=== PATIENT | female | born 1960 | race Caucasian/White ===

== ENCOUNTER → 2017-12-08 | Outpatient (CLI) | payer BC ==
[2016-05-13 08:48] VITALS: BMI 24.3
[~2017-12-08] MED LIST: ACE325 PO; ACET-2893 PO; AMOX-559 PO; ASPI-757 PO; ATOR20TA65 PO; BLOO1STR16 MC; ESCI10TA8 PO; ESCI20TA8 PO; FLU45SYR25 IM ONLY; FURO-45 PO; FURO-47 PO; GLUC-396 PO; HUMALOG SC; HUMNI SC; INSU100V24 SQ; LANI SUBQ; LISI-362 PO; METH500T6 PO; METO25TA23 PO; MULT1TAB67 PO; NAPR220C12 PO; NOVOLINRPT IJ; OMEP-125 PO; PNEI IJ; POTA-23 PO; SUCR1TAB51 PO; TRAM-420 PO
[2017-12-08 12:07] LABS: PLATELET COUNT, AUTOMATED 327 K/uL (150-450)
[2017-12-08 12:31] LABS: LDL CHOLESTEROL 80 mg/dl
--- NOTE | 2017-12-08 14:11 | RADIOLOGY IMAGING REPORT ---
FACILITY: [facility] [place] PATIENT NAME: Nunu Mattson : 1960 MR: [id number] V: [id number] EXAM DATE: ORDERING PHYSICIAN: LIU MELVIN TECHNOLOGIST: Location: [facility] [place] Patient: Nunu Mattson : 1960 Visit/Account:[id number] Date of Sevice: 12/08/2017 Exam type: HIP LEFT History: HIP PAIN on left with no known injury Comparison: None. Findings: Two views the left hip are submitted There is mild narrowing of the superior aspect of both hip joints. There is no evidence of acute fra cture-dislocation involving the left hip. Incidentally noted is scoliosis of the visualized lower dev mbar spine. There are numerous calcified phlebolith in the pelvis. Soft tissue fullness in the pelv is may represent a distended urinary bladder IMPRESSION: 1. Mild narrowing the superior aspect of both hip joints There is soft tissue fullness in the pelvis which may represent a distended urinary bladder. The pel don mass is of clinical concern pelvic ultrasound is recommended Report Dictated By: Mi Gage MD at 12/08/2017 2:06 PM Report E-Signed By: Mi Gage MD at 12/08/2017 2:08 PM WSN:[email or web address]
== END ==
LOC: LAB 11:35
PROVIDERS: ATTEND Internal Medicine
DX: F32.9 Major depressive disorder, single episode, unspecified (principal); I50.9 Heart failure, unspecified; R06.00 Dyspnea, unspecified; E11.9 Type 2 diabetes mellitus without complications; M25.552 Pain in left hip
CPT/HCPCS: 36415; 81001; 82040; 82043; 82247; 82310; 82374; 82435; 82465; 82565; 82947; 83036; 83718; 83880; 84075; 84132; 84155; 84295; 84443; 84450; 84460; 84478; 84520; 85025

== ENCOUNTER → 2017-12-15 | Outpatient (CLI) | payer BC ==
[2016-05-13 08:48] VITALS: BMI 24.3
--- NOTE | 2017-12-15 11:48 | RADIOLOGY IMAGING REPORT ---
FACILITY: [facility] [place] PATIENT NAME: Nunu Mattson : 1960 MR: [id number] V: [id number] EXAM DATE: ORDERING PHYSICIAN: LIU MELVIN TECHNOLOGIST: Location: [facility] [place] Patient: Nunu Mattson : 1960 Visit/Account:[id number] Date of Sevice: 12/15/2017 PELVIC HISTORY: Pelvic mass, partial hysterectomy 17 years ago TECHNIQUE: Transabdominal ultrasound pelvis. The patient refused transvaginal imaging COMPARISON: None. FINDINGS: The patient is status post hysterectomy Ovaries: Right - 13 x 7.2 x 8.3 cm. There is a septated cyst in the right adnexa measuring 12.3 x 5.6 x 7.1 cm. There is a thick septation measuring up to 9 mm in thickness and a 2.8 x 1.7 cm mural nodule Left - not seen Adnexa: As above. Free pelvic fluid: None. IMPRESSION: There is a 12.3 x 5.6 x 7.1 cm septated cystic mass containing a thick septation measuring up to 9 mm in the right adnexa. Also present is a 2.8 x 1.7 cm mural nodule. Although the differential diagno sis would include benign etiologies, ovarian malignancy is of concern. Post surgical changes from hysterectomy Left ovary not visualized Report Dictated By: Mi Gage MD at 12/15/2017 11:33 AM Report E-Signed By: Mi Gage MD at 12/15/2017 11:44 AM WSN:[email or web address]
== END ==
LOC: US 00:28
PROVIDERS: ATTEND Internal Medicine
DX: N83.201 Unspecified ovarian cyst, right side (principal); Z90.79 Acquired absence of other genital organ(s)
CPT/HCPCS: 76856

== ENCOUNTER → 2017-12-20 | Outpatient (CLI) | payer BC ==
[2016-05-13 08:48] VITALS: BMI 24.3
[~2017-12-20] MED LIST changes: +OXYGENHOME INH
== END ==
LOC: LAB 11:15
PROVIDERS: ATTEND Student in an Organized Health Care Education/Training Program
DX: R19.03 Right lower quadrant abdominal swelling, mass and lump (principal)
CPT/HCPCS: 86304

== ENCOUNTER → 2018-01-06 | Outpatient (CLI) | payer MEDICARE, BC ==
[2016-05-13 08:48] VITALS: BMI 24.3
[~2018-01-06] MED LIST changes: +CEPH500T7 PO; +IOPAMIDOL 76% 100 ML INFUS BTL 100 ML ONE
--- NOTE | 2018-01-06 11:43 | RADIOLOGY IMAGING REPORT ---
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 Coronal and sagittal reformatting also performed. CONTRAST: 100 mL [id number] COMPARISON: Abdomen ultrasound May 14, 2016 CT of the chest December 17, 2016 and pelvic ultrasound J une 2017 FINDINGS: Visualized lung bases: Coarse linear stranding in the left lower lobe and lingula and inferior right middle lobe may represent scarring versus atelectasis. Hepatobiliary: There is enlarged measuring 22.3 cm in length. There is a tiny round hypodensity inf eromedial right lobe which may represent a cyst although is too small to characterize. There is a sm all subcapsular fluid collection seen along the inferolateral aspect of the right lobe. The common b ile duct is dilated up to 9 mm. A similar finding was present on the abdomen ultrasound May 14, 2016. No intrahepatic ductal dilatation is identified. Spleen: Negative. Adrenals: There is a 8 mm hypoattenuating right adrenal nodule appears similar to the prior CT of e chest from December 17, 2016 Pancreas: Body and tail the pancreas appear atrophic Kidneys ureters or bladder: Negative. Genitalia: There is a large septated cystic mass extending out of the pelvis mostly in the midline m easuring approximately 12.7 x 9.5 x 8.9 cm contains several hyper dense mural nodules. Is a trace am ount of free pelvic fluid. Patient status post hysterectomy GI: Small hiatal hernia. There is no evidence of bowel obstruction or bowel wall thickening Vessels/spaces/nodes: There Is a heterogeneous soft tissue density mass containing several punctate c alcifications measuring approximately 4 x 4.4 x 4 cm projecting along the superior left side of the s eptated cystic mass and is in direct contact with several adjacent loops of small bowel. This could be exophytic component of the large pelvic mass or a peritoneal implant. . There are at least moderate vascular calcifications throughout the abdomen and pelvis Bones/soft tissues: There is a severe S-shaped scoliosis of the thoracolumbar spine with spondylotic changes. There is a left inguinal hernia containing fat Additional findings: None pertinent. IMPRESSION: There is a large septated cystic mass extending out of the pelvis mostly in the midline measuring ilene roximately 12.7 x 9.5 x 8.9 cm and contains several hyperdense mural nodules. There is also a 4 x 4. 4 x 4 cm soft tissue density heterogeneous mass containing several calcifications projecting along th e superior left side of the septated cystic mass is in direct contact with several adjacent loops of small bowel. This could be an exophytic component of the large pelvic mass or a peritoneal implant. Ovarian neoplasm is of concern 8 mm hypoattenuating right adrenal nodule appears stable Hepatomegaly There is dilatation of the common bile duct measuring up to 9 mm. No intrahepatic ductal dilatation is seen. A similar finding was seen on a prior abdomen ultrasound May 14, 2016. If further diag nostic imaging is desired and MRCP may be helpful Additional chronic findings . Report Dictated By: Mi Gage MD at 01/06/2018 10:59 AM Report E-Signed By: Mi Gage MD at 01/06/2018 11:39 AM AINSLEYN:[email or web address]
== END ==
LOC: CT 04:13
PROVIDERS: ATTEND Nurse Practitioner Acute Care
DX: R19.00 Intra-abdominal and pelvic swelling, mass and lump, unspecified site (principal); K40.90 Unilateral inguinal hernia, without obstruction or gangrene, not specified as recurrent; M41.84 Other forms of scoliosis, thoracic region; Z90.710 Acquired absence of both cervix and uterus
CPT/HCPCS: 74177; Q9967

== ENCOUNTER → 2018-02-21 | Outpatient (CLI) | payer BC, MEDICARE ==
[2016-05-13 08:48] VITALS: BMI 24.3
[~2018-02-21] MED LIST changes: -IOPAMIDOL 76% 100 ML INFUS BTL 100 ML ONE; +RIVA10TA PO
[2018-02-21 11:18] LABS: PLATELET COUNT, AUTOMATED 423 K/uL (150-450)
== END ==
LOC: LAB 10:40
PROVIDERS: ATTEND Internal Medicine
DX: E11.9 Type 2 diabetes mellitus without complications (principal); E78.5 Hyperlipidemia, unspecified; R25.2 Cramp and spasm
CPT/HCPCS: 36415; 82040; 82247; 82310; 82374; 82435; 82565; 82947; 83735; 84075; 84132; 84155; 84295; 84443; 84450; 84460; 84520; 85025

== ENCOUNTER → 2018-02-22 | Outpatient (CLI) | payer BC, MEDICARE ==
[2016-05-13 08:48] VITALS: BMI 24.3
--- NOTE | 2018-02-22 11:36 | RADIOLOGY IMAGING REPORT ---
FACILITY: [facility] PATIENT NAME: Nunu Mattson : 1960 MR: [id number] V: [id number] EXAM DATE: ORDERING PHYSICIAN: LIU MELVIN TECHNOLOGIST: Location: [facility] Patient: Nunu Mattson : 1960 Visit/Account:[id number] Date of Sevice: 02/22/2018 Exam type: VENOUS DOPP LOW RIGHT EXTREMIT History: Leg pain Comparison: None. Findings: The right lower extremity veins were imaged including the right common femoral vein, superficial femo ral vein, greater saphenous vein, popliteal vein, posterior tibial vein, anterior tibial vein peronea l veins revealing no evidence of intraluminal thrombi. The veins were compressible and demonstrated augmentation IMPRESSION: 1. No sonographic evidence DVT involving the right lower extremity veins Report Dictated By: Mi Gage MD at 02/22/2018 11:31 AM Report E-Signed By: Mi Gage MD at 02/22/2018 11:33 AM WSN:[email or web address]
== END ==
LOC: US 02:44
PROVIDERS: ATTEND Internal Medicine
DX: E11.9 Type 2 diabetes mellitus without complications (principal); C56.9 Malignant neoplasm of unspecified ovary; F32.9 Major depressive disorder, single episode, unspecified; M79.606 Pain in leg, unspecified

== ENCOUNTER → 2018-03-31 | Outpatient (CLI) | payer BC, MEDICARE ==
[2016-05-13 08:48] VITALS: BMI 24.3
== END ==
LOC: LAB 10:28
PROVIDERS: ATTEND Student in an Organized Health Care Education/Training Program
DX: C56.1 Malignant neoplasm of right ovary (principal)
CPT/HCPCS: 36415; 86304

== ENCOUNTER 2018-05-23 16:45 | Emergency (ER) | payer BC, MEDICARE ==
[2016-05-13 08:48] VITALS: Wt 68.0 kg
[2018-05-23 17:06] VITALS: BP 121/71
--- NOTE | 2018-05-23 17:07 | ER Report ---
History and Physical Time Seen By : 17:07 HPI/ROS 58-year-old female sent to the emergency department by her primary physician after routine blood draw found that she had a glucose in the 700s. The blood draw was today at 1330. She continued emergency department after being called by her primary physician. In the ED her sugar was in the 200s. She said she has not taken any insulin in between getting her blood drawn and presenting to the emergency department. She otherwise feels well. She states she is compliant with her diabetic regimen. She states that she knows when her sugar is high, because she gets thirsty. She said that she has not been thirsty today. Remainder of the 14 system rev: Yes Allergies: Coded Allergies: No Known Drug Allergies (Unverified , 05/30/17) Home Meds Active Scripts Gabapentin (GABAPENTIN) 100 Mg Capsule, 1-3 CAP PO TID PRN for neuropathy, #60 CAPSULE 3 Refills Prov:LIU MELVIN MD 05/23/18 Flash Glucose Sensor (Freestyle Diana 14 Day Sensor) 1 Each Kit, UNIT Q2WK, #2 11 Refills Prov:LIU MELVIN MD 05/23/18 Flash Glucose Scanning [place] (Freestyle Diana 14 Day [place]) 1 Each Each, UNIT TD DIRECTED, #1 Prov:LIU MELVIN MD 05/23/18 Pantoprazole Sodium (PANTOPRAZOLE SODIUM) 40 Mg Tablet.dr, 40 MG PO QDAY, #30 TAB.SR 6 Refills Prov:LIU MELVIN MD 05/23/18 Escitalopram Oxalate (ESCITALOPRAM OXALATE) 20 Mg Tablet, 20 MG PO QDAY, #90 TAB 3 Refills Prov:LIU MELVIN MD 02/21/18 Atorvastatin Calcium (ATORVASTATIN CALCIUM) 20 Mg Tablet, 1 TAB PO QDAY, #90 TAB 3 Refills Prov:LIU MELVIN MD 02/21/18 Furosemide (FUROSEMIDE) 20 Mg Tablet, 1 TAB PO QDAY, #90 TAB 1 Refill Prov:LIU MELVIN MD 02/21/18 Blood Sugar Diagnostic (FREESTYLE LITE TEST STRIPS) 1 Each Strip, 1 EACH MC QID, #100 STRIP 7 Refills use four times a day to test blood sugar Prov:LIU MELVIN MD 02/08/17 Insulin Regular, Human (NOVOLIN R) 100 Unit/1 Ml Vial, 15-20 UNIT IJ TID, #6 VIAL 4 Refills 15-20 units three times a day Sliding scale Prov:LIU MELVIN MD 01/13/17 Reported Medications Aspirin (ASPIRIN) 81 Mg Tab.chew, 81 MG PO QDAY, TAB.CHEW 05/23/18 Oxygen (OXYGEN) Inha, 2 L INH, L 12/20/17 Insulin Glargine (LANTUS) 100 Unit/Ml Soln, 15 UNIT SUBQ BID, ML 05/30/17 Discontinued Reported Medications Rivaroxaban 10 MG (Xarelto 10 MG) 10 Mg Tablet, 1 TAB PO QDAY 02/21/18 Discontinued Scripts Omeprazole (OMEPRAZOLE) 20 Mg Capsule.dr, 1 CAP PO QDAY, #90 CAP 3 Refills Prov:LIU MELVIN MD 02/21/18 Tramadol Hcl (TRAMADOL HCL) 50 Mg Tablet, 50 MG PO QID, #30 TAB Prov:LIU MELVIN MD 12/08/17 Aspirin (ASPIRIN) 325 Mg Tablet, 325 MG PO QDAY, #90 Prov:LIU MELVIN MD 05/14/16 Reviewed Nurses Notes: Yes Old Medical Records Reviewed: Yes Hx Smoking: Yes Smoking Status: Former Smoker Hx Substance Use Disorder: No Hx Alcohol Use: No Constitutional Vital Sign - Last 24 Hours 05/23/18 17:06 Temp 97.8 Pulse 86 Resp 18 B/P (MAP) 121/71 Pulse Ox 97 O2 Delivery Nasal Cannula Physical Exam General Appearance: The patient is alert, has no immediate need for airway protection and no current signs of toxicity. Eyes: Pupils equal and round no injection. Respiratory: Chest is non tender, lungs are clear to auscultation. Cardiac: regular rate and rhythm Gastrointestinal: Abdomen is soft and non tender, no masses, bowel sounds gino l. Extremities have full range of motion and are non tender. Skin: No rashes or lesions. DIFFERENTIAL DIAGNOSIS: After history and physical exam differential diagnosis was considered for infection, non compliance, lab error Medical Decision Making ED Course/Re-evaluation ED Course Sent to the ED for blood sugar in the 700s. In the ED her blood sugar is 250. No further intervention needed. She will follow-up with her primary care physician tomorrow. Decision to Disposition Date: May 23, 2018 Decision to Disposition Time: 17:42 Depart Departure Latest Vital Signs Vital Signs Date Time Temp Pulse Resp B/P (MAP) Pulse Ox O2 Delivery O2 Flow Rate FiO2 05/23/18 17:06 97.8 86 18 121/71 97 Nasal Cannula Impression: Primary Impression: Hyperglycemia Condition: Improved Disposition: HOME OR SELF-CARE Referrals: LIU MELVIN MD (PCP) Additional Instructions: Resume your regular insulin and diabetic regimen as prescribed by your doctor ANGELA CHOU MD May 23, 2018 17:07
== END 2018-05-23 18:03 | disposition home or self-care (01) ==
LOC: ER 17:09
DX: E11.65 Type 2 diabetes mellitus with hyperglycemia (principal)
CPT/HCPCS: 36416; 82948; 99282

== ENCOUNTER → 2018-05-23 | Outpatient (CLI) | payer BC, MEDICARE ==
[2016-05-13 08:48] VITALS: BMI 24.3
[~2018-05-23] MED LIST changes: +ASPI81TA94 PO; +FLAS1EAC2 TD; +FLAS1KIT2; +FLU60SYR36 IM; +GABA-547 PO; +PANT40TA65 PO
[2018-05-23 15:09] LABS: PLATELET COUNT, AUTOMATED 354 K/uL (150-450)
== END ==
LOC: LAB 14:41
PROVIDERS: ATTEND Internal Medicine
DX: I50.9 Heart failure, unspecified (principal); F32.9 Major depressive disorder, single episode, unspecified; E11.9 Type 2 diabetes mellitus without complications; E78.5 Hyperlipidemia, unspecified
CPT/HCPCS: 36415; 81001; 82040; 82043; 82247; 82310; 82374; 82435; 82465; 82565; 82947; 83036; 83718; 84075; 84132; 84155; 84295; 84443; 84450; 84460; 84478; 84520; 85025

== ENCOUNTER → 2018-07-07 | Outpatient (CLI) | payer BC, MEDICARE ==
[2016-05-13 08:48] VITALS: BMI 24.3
== END ==
LOC: LAB 09:39
PROVIDERS: ATTEND Surgery
DX: L72.0 Epidermal cyst (principal)
CPT/HCPCS: 88305

== ENCOUNTER → 2018-07-17 | Outpatient (CLI) | payer BC, MEDICARE ==
[2016-05-13 08:48] VITALS: BMI 24.3
--- NOTE | 2018-07-17 11:48 | RADIOLOGY IMAGING REPORT ---
FACILITY: [facility] [place] PATIENT NAME: Nunu Mattson : 1960 MR: [id number] V: [id number] EXAM DATE: ORDERING PHYSICIAN: LIU MELVIN TECHNOLOGIST: Location: [facility] Patient: Nunu Mattson : 1960 Visit/Account:[id number] Date of Sevice: 07/17/2018 VENOUS LOWER EXT RT HISTORY: edema, redness and pain RLE COMPARISON: None. FINDINGS: Grayscale, duplex and color Doppler interrogation of the right lower extremity deep veins from common femoral vein to proximal calf was completed. The greater saphenous vein in the proximal thigh was ev aluated using similar technique. Common femoral vein - Negative. Femoral vein - Negative. Deep femoral vein - Negative. Popliteal vein - Negative. Visualized deep calf veins - Negative. Popliteal fossa: Negative. Greater saphenous vein in the proximal thigh: Negative. IMPRESSION: No evidence for DVT. Report Dictated By: Neville Samuel MD at 07/17/2018 11:44 AM Report E-Signed By: Neville Samuel MD at 07/17/2018 11:44 AM WSN:[id number]
== END ==
LOC: US 04:35
PROVIDERS: ATTEND Internal Medicine
DX: R60.9 Edema, unspecified (principal)

== ENCOUNTER 2018-11-20 16:23 | Inpatient (IN) | payer BC, MEDICARE ==
[2016-05-13 08:48] VITALS: Ht 157.5 cm; Wt 70.6 kg
[~2018-11-20] VITALS: Ht 157.5 cm; Wt 70.6 kg
[2018-11-20] VITALS (22 sets, daily range): BP systolic 79–108; BP diastolic 44–65
--- NOTE | 2018-11-20 16:27 | ER Report ---
History and Physical Time Seen By MD: 16:27 HPI/ROS CHIEF COMPLAINT: Nausea, vomiting HISTORY OF PRESENT ILLNESS: Patient is a 58-year-old female here with complaints of nausea, vomiting for the past several days, several weeks of general malaise and weakness. Patient is a type II diabetic insulin-dependent, with a history of CHF on furosemide and, 2 L/m to 3 L/m baseline nasal cannula supplemental oxygen requirement. Patient reports that she is unable to keep down food or fluids at this time but denies abdominal pain, hematuria, burning with urination, blood in the stools. Patient does feel short of breath mildly worse than her baseline. Patient was sent over from PCP office due to hypotension with blood pressure 79/51, tachycardia of 105. REVIEW OF SYSTEMS: Constitutional: No fever, no chills. Eyes: No discharge. ENT: No sore throat. Cardiovascular: No chest pain, no palpitations. Respiratory: No cough, + shortness of breath. Gastrointestinal: No abdominal pain, + nausea and vomiting. Genitourinary: No hematuria, no burning with urination,+ decreased urine output Musculoskeletal: No back pain. Skin: No rashes. Neurological: No headache. No focal neurological deficits, + general malaise Allergies: Coded Allergies: No Known Drug Allergies (Unverified , 07/05/18) Home Meds Active Scripts Insulin Glargine (LANTUS) 100 Unit/Ml Soln, 18 UNIT SUBQ BID, #3 VIAL 6 Refills add 2 units every 3 days until FBS less than 120 Prov:ILU MELVIN MD 07/14/18 Gabapentin (GABAPENTIN) 100 Mg Capsule, 1-3 CAP PO TID PRN for neuropathy, #60 CAPSULE 3 Refills Prov:LIU MELVIN MD 05/23/18 Flash Glucose Sensor (Freestyle Diana 14 Day Sensor) 1 Each Kit, UNIT Q2WK, #2 11 Refills Prov:LIU MELVIN MD 05/23/18 Flash Glucose Scanning [place] (Freestyle Diana 14 Day [place]) 1 Each Each, UNIT TD DIRECTED, #1 Prov:LIU MELVIN MD 05/23/18 Pantoprazole Sodium (PANTOPRAZOLE SODIUM) 40 Mg Tablet.dr, 40 MG PO QDAY, #30 TAB.SR 6 Refills Prov:LIU MELVIN MD 05/23/18 Escitalopram Oxalate (ESCITALOPRAM OXALATE) 20 Mg Tablet, 20 MG PO QDAY, #90 TAB 3 Refills Prov:LIU MELVIN MD 02/21/18 Atorvastatin Calcium (ATORVASTATIN CALCIUM) 20 Mg Tablet, 1 TAB PO QDAY, #90 TAB 3 Refills Prov:LIU MELVIN MD 02/21/18 Furosemide (FUROSEMIDE) 20 Mg Tablet, 1 TAB PO QDAY, #90 TAB 1 Refill Prov:LIU MELVIN MD 02/21/18 Blood Sugar Diagnostic (FREESTYLE LITE TEST STRIPS) 1 Each Strip, 1 EACH MC QID, #100 STRIP 7 Refills use four times a day to test blood sugar Prov:LIU MELVIN MD 02/08/17 Insulin Regular, Human (NOVOLIN R) 100 Unit/1 Ml Vial, 15-20 UNIT IJ TID, #6 AL 4 Refills 15-20 units three times a day Sliding scale Prov:LIU MELVIN MD 01/13/17 Reported Medications Aspirin (ASPIRIN) 81 Mg Tab.chew, 81 MG PO QDAY, TAB.CHEW 05/23/18 Oxygen (OXYGEN) Inha, 2 L INH, L 12/20/17 Hx Smoking: Yes Smoking Status: Former Smoker Hx Substance Use Disorder: No Hx Alcohol Use: No Constitutional Vital Sign - Last 24 Hours 11/20/18 11/20/18 16:53 17:00 Temp 99.3 Pulse 107 Resp 18 B/P (MAP) 105/63 Pulse Ox 94 O2 Delivery Room Air O2 Flow Rate 2.0 Physical Exam General Appearance: The patient is alert, has no immediate need for airway protection and no signs of toxicity. Uncomfortable appearing, nontoxic Eyes: Pupils equal and round no pallor or injection. ENT, Mouth: Dry mucous membranes without erythema Respiratory: There are no retractions, lungs are clear to auscultation. 3 L/m nasal cannula in place no rales or rhonchi Cardiovascular: Sinus tachycardia confirmed by 12-lead EKG Gastrointestinal: Abdomen is soft and non tender, no masses, bowel sounds normal. Neurological: No focal neurological deficits, alert and oriented Skin: Warm and dry, no rashes. Musculoskeletal: Neck is supple non tender. Extremities are nontender, nonswollen and have full range of motion. DIFFERENTIAL DIAGNOSIS: After history and physical exam differential diagnosis was considered for adult fever including but not limited to viral syndromes including influenza, urinary tract infection, pneumonia and sepsis, hyperglycemia Medical Decision Making Data Points Result Diagram: 11/20/18 1646 11/20/18 1646 Laboratory Hematology Test 11/20/18 16:46 Red Blood Count 4.03 M/uL (4.17-5.56) Mean Corpuscular Volume 103.8 fL (80.0-96.0) Mean Corpuscular Hemoglobin 32.5 pg (26.0-33.0) Mean Corpuscular Hemoglobin Concent 31.3 g/dL (32.0-36.0) Red Cell Distribution Width 14.9 % (11.5-14.5) Mean Platelet Volume 8.7 fL (7.2-11.1) Neutrophils (%) (Auto) 91.2 % (39.4-72.5) Lymphocytes (%) (Auto) 6.1 % (17.6-49.6) Monocytes (%) (Auto) 2.1 % (4.1-12.4) Eosinophils (%) (Auto) 0.2 % (0.4-6.7) Basophils (%) (Auto) 0.4 % (0.3-1.4) Nucleated RBC Relative Count (auto) 0.0 /100WBC Neutrophils # (Auto) 7.6 K/uL (2.0-7.4) Lymphocytes # (Auto) 0.5 K/uL (1.3-3.6) Monocytes # (Auto) 0.2 K/uL (0.3-1.0) Eosinophils # (Auto) 0.0 K/uL (0.0-0.5) Basophils # (Auto) 0.0 K/uL (0.0-0.1) Nucleated RBC Absolute Count (auto) 0.00 K/uL Blood Gas Patient Temperature 99.3 DEGREES Venous Blood pH 7.13 (7.31-7.41) Venous Blood Partial Pressure CO2 32 mmHg Venous Blood Partial Pressure O2 42 mmHg Venous Blood HCO3 11 mmol/L Venous Blood Oxygen Saturation 61 % Venous Blood Base Excess -19 mmol/L Oxygen Liters/Minute 0 Sodium Level 132 mmol/L (137-145) Potassium Level 4.9 mmol/L (3.5-5.0) Chloride Level 85 mmol/L (98-107) Carbon Dioxide Level 11 mmol/L (22-31) Blood Urea Nitrogen 31 mg/dl (7-18) Creatinine 1.40 mg/dl (0.52-1.04) Glomerular Filtration Rate Calc 38.4 Random Glucose 812 mg/dl (75-110) Lactate 9.1 mmol/L (0.7-2.1) Calcium Level 11.1 mg/dl (8.4-10.2) Total Bilirubin 0.7 mg/dl (0.2-1.3) Aspartate Amino Transf (AST/SGOT) 58 U/L (0-35) Alanine Aminotransferase (ALT/SGPT) 62 U/L (0-56) Alkaline Phosphatase 196 U/L (0-126) Troponin I < 0.012 ng/ml Total Protein 7.4 g/dl (6.3-8.2) Albumin 4.6 g/dl (3.5-5.0) Chemistry Test 11/20/18 16:46 White Blood Count 8.3 k/uL (4.5-11.0) Red Blood Count 4.03 M/uL (4.17-5.56) Hemoglobin 13.1 g/dL (12.0-16.0) Hematocrit 41.8 % (34.0-47.0) Mean Corpuscular Volume 103.8 fL (80.0-96.0) Mean Corpuscular Hemoglobin 32.5 pg (26.0-33.0) Mean Corpuscular Hemoglobin Concent 31.3 g/dL (32.0-36.0) Red Cell Distribution Width 14.9 % (11.5-14.5) Platelet Count 341 K/uL (150-450) Mean Platelet Volume 8.7 fL (7.2-11.1) Neutrophils (%) (Auto) 91.2 % (39.4-72.5) Lymphocytes (%) (Auto) 6.1 % (17.6-49.6) Monocytes (%) (Auto) 2.1 % (4.1-12.4) Eosinophils (%) (Auto) 0.2 % (0.4-6.7) Basophils (%) (Auto) 0.4 % (0.3-1.4) Nucleated RBC Relative Count (auto) 0.0 /100WBC Neutrophils # (Auto) 7.6 K/uL (2.0-7.4) Lymphocytes # (Auto) 0.5 K/uL (1.3-3.6) Monocytes # (Auto) 0.2 K/uL (0.3-1.0) Eosinophils # (Auto) 0.0 K/uL (0.0-0.5) Basophils # (Auto) 0.0 K/uL (0.0-0.1) Nucleated RBC Absolute Count (auto) 0.00 K/uL Blood Gas Patient Temperature 99.3 DEGREES Venous Blood pH 7.13 (7.31-7.41) Venous Blood Partial Pressure CO2 32 mmHg Venous Blood Partial Pressure O2 42 mmHg Venous Blood HCO3 11 mmol/L Venous Blood Oxygen Saturation 61 % Venous Blood Base Excess -19 mmol/L Oxygen Liters/Minute 0 Glomerular Filtration Rate Calc 38.4 Lactate 9.1 mmol/L (0.7-2.1) Calcium Level 11.1 mg/dl (8.4-10.2) Total Bilirubin 0.7 mg/dl (0.2-1.3) Aspartate Amino Transf (AST/SGOT) 58 U/L (0-35) Alanine Aminotransferase (ALT/SGPT) 62 U/L (0-56) Alkaline Phosphatase 196 U/L (0-126) Troponin I < 0.012 ng/ml Total Protein 7.4 g/dl (6.3-8.2) Albumin 4.6 g/dl (3.5-5.0) Toxicology Test 11/20/18 16:46 EKG/Imaging EKG Interpretation 12 lead EKG: Sinus tachycardia, rate 104, QTC 428, no ischemic changes or arrhythmias present Rhythm: Sinus tachycardia [place]: normal QRS: normal ST segments: normal Imaging PATIENT NAME: Nunu Mattson : 1960 MR: [id number] V: [id number] EXAM DATE: ORDERING PHYSICIAN: JACK CHURCHILL TECHNOLOGIST: [place] [facility] [place]: Nunu Mattson : 1960 Visit/Account:[id number] Date of Sevice: 11/20/2018 CHEST SINGLE AP HISTORY: Shortness of breath. COMPARISON: July 05, 2018 FINDINGS: Cardiomediastinal contours: The heart size is normal. Lungs and pleura: There is no finding of an infiltrate, lymphadenopathy or pleural effusion. Bones/soft tissues: There is thoracolumbar S-shaped scoliosis. IMPRESSION: 1. No active disease in the chest. 2. Thoracolumbar S-shaped scoliosis. ED Course/Re-evaluation ED Course Patient is a 58-year-old female here with complaints of significant dehydration, nausea, vomiting for the past several days found to be hypotensive at PCP, tachycardic, with mild increase in shortness of breath from baseline saturating well on 3 L/m. Patient did have improvement of 105/63 by time of evaluation. Patient does have history of diabetes and was found to have a glucose level which was critically high on bedside Accu-Chek. Patient was started on IV fluids, labs and cultures were sent, chest x-ray, EKG were completed. EKG was sinus tachycardia normal QTC, no arrhythmias or ischemic findings. Chest x-ray was unremarkable with no consolidations. Patient's last ejection fraction was high 50s so she was bolused 3 L initially due to significant dehydration. Patient was found to have a lactate of 9.1, initial glucose of 812 with an anion gap calculated at 36, bicarbonate 11. Patient was given initial bolus of 10 units of insulin, and started on insulin drip with continued hydration. I discussed the patient with Dr. Moreno who accepted the patient to the hospitalist service. Decision to Disposition Date: November 20, 2018 Decision to Disposition Time: 17:42 Depart Departure Latest Vital Signs Vital Signs Date Time Temp Pulse Resp B/P (MAP) Pulse Ox O2 Delivery O2 Flow Rate FiO2 11/20/18 17:00 2.0 11/20/18 16:53 99.3 107 18 105/63 94 Room Air Impression: Primary Impression: Hyperglycemia Additional Impressions: Dehydration Nausea & vomiting Acidosis Condition: Improved Disposition: Admitted from ER Referrals: LIU MELVIN MD (PCP) Problem Qualifiers JACK CHURCHILL DO November 20, 2018 16:27
[2018-11-20] MEDS ORDERED: NS(*) 0.9% 1000 ML BAG 1,000 ML IV ONE ×3 (16:28→17:45)
[2018-11-20] MEDS ORDERED: ONDANSETRON 4 MG/2 ML VIAL IVP ONE (16:35)
--- NOTE | 2018-11-20 16:42 | EKG ---
FACILITY: [facility] PATIENT NAME: MARIBEL BALDERRAMA : [id number] MR: [id number] V: [id number] EXAM DATE: ORDERING PHYSICIAN: JACK CHURCHILL TECHNOLOGIST: CORNELL Andres Reason : TACHY Blood Pressure : / mmHG Vent. Rate : 104 BPM Atrial Rate : 104 BPM P-R Int : 154 ms QRS Dur : 070 ms QT Int : 326 ms P-R-T Axes : 061 -01 064 degrees QTc Int : 428 ms Sinus tachycardia Borderline left axis Possible left atrial enlargement Poor R wave progression anteriorly Abnormal ECG Confirmed by LOTUS BERRY ([id number]) on 11/21/2018 3:30:26 AM Referred By: ER Confirmed By:LOTUS BERRY
[2018-11-20] MEDS ORDERED: INS HUM REG* 100 U/ML(ER ONLY) 100 UNIT in NS(*) 0.9% 100 ML BAG 99 ML IVPB ONE (17:20)
[2018-11-20] MEDS ORDERED: METOCLOPRAMIDE 10 MG/2 ML SDV IVP ONE (17:25)
--- NOTE | 2018-11-20 17:28 | RADIOLOGY IMAGING REPORT ---
[place] [facility] [place] Nunu Mattson : 1960 MR: [id number] V: [id number] EXAM DATE: ORDERING PHYSICIAN: JACK CHURCHILL TECHNOLOGIST: Location: [facility] [place] Patient: Nunu Mattson : 1960 Visit/Account:[id number] Date of Sevice: 11/20/2018 CHEST SINGLE AP HISTORY: Shortness of breath. COMPARISON: July 05, 2018 FINDINGS: Cardiomediastinal contours: The heart size is normal. Lungs and pleura: There is no finding of an infiltrate, lymphadenopathy or pleural effusion. Bones/soft tissues: There is thoracolumbar S-shaped scoliosis. IMPRESSION: 1. No active disease in the chest. 2. Thoracolumbar S-shaped scoliosis. Report Dictated By: Amarjit Boucher MD at 11/20/2018 5:24 PM Report E-Signed By: Amarjit Boucher MD at 11/20/2018 5:24 PM WSN:[id number]
[2018-11-20 17:32] LABS: PLATELET COUNT, AUTOMATED 341 K/uL (150-450)
[2018-11-20] MEDS ORDERED: INS HUM LISPRO 100U/ML (ER ONLY) 10 ML VIAL SC ONE (17:40)
[2018-11-20] MEDS: INSULIN HUM REG 100 UN/ML 3 ML 100 UNIT in NS(*) 0.9% 100 ML BAG 99 ML IV SCH (18:44)
--- NOTE | 2018-11-20 19:05 | History & Physical ---
History of Present Illness Chief Complaint Nausea and vomiting History of Present Illness 58yo female with PMHx significant for type 2 DM on insulin. She reports 3 bouts of nausea with associated vomiting over the past two weeks. These episodes have usually occurred after eating or drinking something. She denies any associated abdominal pain/chest pain/dyspnea/MORRIS/fevers/chills/diarrhea. She states she was able to eat "some" yesterday, but had nausea "all day" today. She states she has been checking her fingerstick glucoses and results were "really high". She has been giving supplemental insulin based on her readings. She has been having d izziness when up throughout the day today. She was evaluated in the ER and found to have significantly elevated glucoses with acidosis and evidence of dehydration. She was recommended for admission. History Problems: (1) Diabetic neuropathy Status: Chronic (2) GERD (gastroesophageal reflux disease) Status: Chronic (3) History of colon polyps Status: Chronic (4) Depression Status: Chronic (5) Hyperlipidemia Status: Chronic (6) Thyroid mass Status: Chronic (7) Abnormal liver enzymes Status: Chronic (8) Diabetes mellitus, type 2 Status: Chronic (9) Ovarian cancer Status: Chronic (10) History of hysterectomy Status: Resolved Home Meds Active Scripts Insulin Glargine (LANTUS) 100 Unit/Ml Soln, 18 UNIT SUBQ BID, #3 VIAL 6 Refills add 2 units every 3 days until FBS less than 120 Prov:LIU MELVIN MD 07/14/18 Gabapentin (GABAPENTIN) 100 Mg Capsule, 1-3 CAP PO TID PRN for neuropathy, #60 CAPSULE 3 Refills Prov:LIU MELVIN MD 05/23/18 Flash Glucose Sensor (Freestyle Diana 14 Day Sensor) 1 Each Kit, UNIT Q2WK, #2 11 Refills Prov:LIU MELVIN MD 05/23/18 Flash Glucose Scanning [place] (Freestyle Diana 14 Day [place]) 1 Each Each, UNIT TD DIRECTED, #1 Prov:LIU MELVIN MD 05/23/18 Pantoprazole Sodium (PANTOPRAZOLE SODIUM) 40 Mg Tablet.dr, 40 MG PO QDAY, #30 TAB.SR 6 Refills Prov:LIU MELVIN MD 05/23/18 Escitalopram Oxalate (ESCITALOPRAM OXALATE) 20 Mg Tablet, 20 MG PO QDAY, #90 TAB 3 Refills Prov:LIU MELVIN MD 02/21/18 Atorvastatin Calcium (ATORVASTATIN CALCIUM) 20 Mg Tablet, 1 TAB PO QDAY, #90 TAB 3 Refills Prov:LIU MELVIN MD 02/21/18 Furosemide (FUROSEMIDE) 20 Mg Tablet, 1 TAB PO QDAY, #90 TAB 1 Refill Prov:LIU MELVIN MD 02/21/18 Blood Sugar Diagnostic (FREESTYLE LITE TEST STRIPS) 1 Each Strip, 1 EACH MC QID, #100 STRIP 7 Refills use four times a day to test blood sugar Prov:LIU MELVIN MD 02/08/17 Insulin Regular, Human (NOVOLIN R) 100 Unit/1 Ml Vial, 15-20 UNIT IJ TID, #6 VIAL 4 Refills 15-20 units three times a day Sliding scale Prov:LIU MELVIN MD 01/13/17 Reported Medications Aspirin (ASPIRIN) 81 Mg Tab.chew, 81 MG PO QDAY, TAB.CHEW 05/23/18 Oxygen (OXYGEN) Inha, 2 L INH, L 12/20/17 Allergies: Coded Allergies: No Known Drug Allergies (Unverified , 07/05/18) Patient History: Bone cancer FATHER, FH: brain aneurysm BROTHER OR SISTER FH: hypertension MOTHER, , Age:83 FH: lung cancer BROTHER OR SISTER FH: ovarian cancer BROTHER OR SISTER Hx Smoking: Yes Smoking Status: Former Smoker Hx Alcohol Use: No Hx Substance Use Disorder: No Social Drug Use: Never Review of Systems Constitutional: No Fever, No Chills, No Night Sweats Neurological: Weakness, Dizziness Eyes: No Vision Change, No Loss of Vision ENT: No Hearing Loss Cardiovascular: Orthostatic Hypotension; No Chest Pain, No Palpitations Respiratory: No Shortness of Breath, No Cough Gastrointestinal: Nausea, Vomiting; No Diarrhea, No Dysphagia, No Hematemesis, No Hematochezia, No Melena, No Abdominal Pain Genitourinary: No Dysuria, No Hematuria Exam Vital Signs Vital Signs Date Time Temp Pulse Resp B/P (MAP) Pulse Ox O2 Delivery O2 Flow Rate FiO2 11/20/18 17:00 2.0 11/20/18 16:53 99.3 107 18 105/63 94 Room Air General Appearance: Alert, Awake Neuro: No Gross deficits Eyes: PERRLA ENT: Other (oral mucosa dry/tacky) Cardiovascular: Other (Tachycardic regular with soft systolic murmur) Respiratory: Clear to Auscultation Chest: No Tenderness GI: Abd Soft and Non-Tender (BS present) : No CVA Tenderness Extremities: Warm, Perfused Integumentary: Skin Intact without Lesion / Mass Psych: Alert & Oriented X3 Medical Decision Making Data Points Result Diagram: 11/20/18 1646 11/20/18 1646 Item Value Date Time Albumin 4.6 g/dl 11/20/18 1646 Total Protein 7.4 g/dl 11/20/18 1646 Troponin I < 0.012 ng/ml 11/20/18 1646 Alkaline Phosphatase 196 U/L H 11/20/18 1646 Alanine Aminotransferase (ALT/SGPT) 62 U/L H 11/20/18 1646 Aspartate Amino Transf (AST/SGOT) 58 U/L H 11/20/18 1646 Total Bilirubin 0.7 mg/dl 11/20/18 1646 Calcium Level 11.1 mg/dl H 11/20/18 1646 Lactate 9.1 mmol/L *H 11/20/18 1646 Osmolality 344 mOSM/K H 11/20/18 1646 Acetone, Qualitative Large 11/20/18 1646 EKG / Imaging Imaging PATIENT NAME: Nunu Mattson : 1960 MR: [id number] V: [id number] EXAM DATE: ORDERING PHYSICIAN: JACK CHURCHILL TECHNOLOGIST: Location: [facility] Patient: Nunu Mattson : 1960 Visit/Account:[id number] Date of Sevice: 11/20/2018 CHEST SINGLE AP HISTORY: Shortness of breath. COMPARISON: July 05, 2018 FINDINGS: Cardiomediastinal contours: The heart size is normal. Lungs and pleura: There is no finding of an infiltrate, lymphadenopathy or pleural effusion. Bones/soft tissues: There is thoracolumbar S-shaped scoliosis. IMPRESSION: 1. No active disease in the chest. 2. Thoracolumbar S-shaped scoliosis. Report Dictated By: Amarjit Boucher MD at 11/20/2018 5:24 PM Report E-Signed By: Amarjit Boucher MD at 11/20/2018 5:24 PM [id number] Assessment and Plan Problems: (1) Acidosis Status: Acute Assessment & Plan: She most likely has acidosis secondary to "starvation" ketosis secondary to poor intake. She has also become quite dehydrated with some acute renal failure. Will give aggressive IV fluids and start on IV insulin drip. Watch glucoses every one hour. Watch electrolytes closely as well. Control nausea as needed. (2) Hyperglycemia Status: Acute Assessment & Plan: Due to uncontrolled type [address] on IV insulin as noted above. Will transition back to subcutaneous insulin once aci dosis has resolved. (3) Diabetes mellitus, type 2 Status: Chronic Assessment & Plan: She has been diabetic for approximately 11 years. Will treat as noted above. (4) Dehydration Status: Acute Assessment & Plan: She is significantly dehydrated with some acute renal freddy lure. Will give aggressive IV fluids. Watch labs and urine output. (5) Nausea & vomiting Status: Acute Assessment & Plan: She has had a few bouts of this over the past few weeks. Question if she may have some GB disease (but no pain) or delayed gastric emptying. Will control symptoms and monitor. Further workup if persistent. (6) Acute renal failure Status: Acute Assessment & Plan: Due to dehydration. Will give aggressive IV fluids. Watch labs. Copies to: LIU MELVIN MD ; Venous Thromboembolism Antithrombotics Is Pt On Any Antithrombotics?: Yes Heart Failure NYHA Class: III Is Patient on ABA Inhibitor?: Yes Is Patient on Beta Virgie?: Yes Exam Sepsis Risk: No Definite Risk LOTUS BERRY MD November 20, 2018 19:05
[2018-11-20] MEDS: KCL/NS* 20 MEQ/1000 ML PREMIX 1,000 ML IV SCH ×2 (19:32→23:45)
[2018-11-20] MEDS: D5 1/2 NS(*) 1000 ML BAG 1,000 ML IV PRN (21:43)
--- NOTE | 2018-11-20 22:00 | NUR ---
GLUCOSE ON LABDRAW 109 Addendum: 11/20/18 at 2200 by YURY THOMPSON RN Amended: Links added.
[2018-11-20] MEDS: [UNRECOGNIZED DRUG - OTHER] TP PRN (23:27)
[2018-11-21] VITALS (27 sets, daily range): BP systolic 99–144; BP diastolic 56–89
[2018-11-21] MEDS: D5 1/2 NS(*) 1000 ML BAG 1,000 ML IV PRN ×2 (01:53→07:06)
[2018-11-21] MEDS: KCL/NS* 20 MEQ/1000 ML PREMIX 1,000 ML IV SCH ×3 (04:45→14:45)
[2018-11-21 05:31] LABS: PLATELET COUNT, AUTOMATED 306 K/uL (150-450)
[2018-11-21] MEDS: ENOXAPARIN 40 MG/0.4ML SYR SC SCH (09:48)
[2018-11-21] MEDS: INSULIN GLARGINE 100 U/ML 3 ML PEN SUBQ SCH ×2 (09:57→21:04)
[2018-11-21] MEDS: INSULIN HUM REG 100 UN/ML 3 ML 100 UNIT in NS(*) 0.9% 100 ML BAG 99 ML IV SCH (11:00)
[2018-11-21] MEDS: INSULIN HUM LISPRO 100 UN/ML 3 ML VIAL SUBQ PRN ×2 (11:58→21:04)
--- NOTE | 2018-11-21 12:02 | NUR ---
pt given SSI coverage of WBG of 203 or 6units of Humalog. Pt has self adminstered all insulin this am, good technique observed
[2018-11-21] MEDS ORDERED: NS(*) 0.9% 1000 ML BAG 1,000 ML ONE ×2 (12:38→15:34)
[2018-11-21] MEDS: [UNRECOGNIZED DRUG - OTHER] TP PRN ×2 (13:13→21:05)
--- NOTE | 2018-11-21 13:44 | NUR ---
WHILE UP TO C PT C/O OF FEELING SHAKEY, WBG CHECKED, RESULTS > 400. ASSISTED BACK TO BED. PT NOTED TO HAVE DECREASE IN SATS TO 63% ON 2L OF O2, OXYGEN INCREASED TO 6L/NC, WITH ONLY MINIMAL CHANGE NOTED. CDB ENCOURAGED, GOOD WAVEFORM NOTED WITH PULSE OXIMETRY. SATS REMAIN IN 68-77% RANGE. O2 DELIVERY CHANGED TO OXYMASK @ 13L. NS BOLUS STARTED. @ 500CC/HR. WILL MONITOR CLOSELY.
--- NOTE | 2018-11-21 14:24 | Hospitalist Progress Note ---
Subjective Progress Notes Subjective 58F admitted for hyperglycemia and DKA. NIKITA overnight, now off insulin gtt. Physical Exam Vital Signs Date Time Temp Pulse Resp B/P (MAP) Pulse Ox O2 Delivery O2 Flow Rate FiO2 11/21/18 13:53 97 Oxy Mask 6.0 11/21/18 12:30 88 11/21/18 10:00 33 129/72 (91) 11/21/18 08:00 99.0 Intake and Output 11/21/18 07:00 Intake Total 3402 ml Output Total 980 ml Balance 2422 ml Intake Oral 400 ml IV Total 3002 ml Output Urine Total 980 ml General Appearance: Alert, Awake, No Acute Distress Neuro: No Gross deficits Cardiovascular: Normal Rhythm & Peripheral Pulses Respiratory: No Respiratory Distress GI: Soft and Non-Tender Extremities: Soft and Non Tender, Warm, Pulses, Perfused Result Diagram: 11/21/1851411/21/18514 Assessment and Plan Problems: (1) Acidosis Status: Acute Assessment & Plan: Secondary to ketoacidosis vs lactic acidosis. Off insulin gtt, lactate elevated despite BP doing well. (2) Hyperglycemia Status: Acute Assessment & Plan: Improved. On SQ insulin. (3) Diabetes mellitus, type 2 Status: Chronic Assessment & Plan: She has been diabetic for approximately 11 years. Will treat as noted above. (4) Dehydration Status: Acute Assessment & Plan: Improved. (5) Nausea & vomiting Status: Acute Assessment & Plan: She has had a few bouts of this over the past few weeks. Question if she may have some GB disease (but no pain) or delayed gastric emptying. Will control symptoms and monitor. Further workup if persistent. (6) Acute renal failure Status: Acute Assessment & Plan: Improved. Heart Failure NYHA Class: III Is Patient on ABA Inhibitor?: Yes Is Patient on Beta Virgie?: Yes Exam Sepsis Risk: No Definite Risk JEWELL MAICO ALFORD DO November 21, 2018 14:24
[2018-11-21] MEDS ORDERED: NS(*) 0.9% 1000 ML BAG 1,000 ML IV ONE (15:25)
--- NOTE | 2018-11-21 15:27 | Miscellaneous Provider Note ---
Miscellaneous Provider Note Note 2/2 BCx now with GPC, will begin vancomycin and ceftriaxone. MAICO NAVA DO November 21, 2018 15:27
[2018-11-21] MEDS ORDERED: VANCOMYCIN(*) 1 GM VIAL 1 GM, VANCOMYCIN HCL 0.750 GM VIAL 0.75 GM in NS(*) 0.9% 250 ML... IVPB ONE (16:00)
[2018-11-21] MEDS ORDERED: cefTRIAXone 2 GM VIAL IVP SCH (16:00)
--- NOTE | 2018-11-21 17:10 | Medical Nutrition Therapy ---
Nutrition Anthropometrics Height (Inches): 62.00 Height (Calculated Centimeters: 157.060464 Weight (Pounds): 153 Weight (Calculated Kilograms): 69.428 BMI: 28 Reagan Nutrition Score: Reagan Nutrition Risk Score: 15 Dietary Referral Nutrition Risk Factors: Nutrition Risk Comment: Physical Findings Physical Appearance: Overweight BMI 25-29 Skin Appearance Skin Appearance: Edema Edema Location Modifier: Edema Location: Type of Edema: Degree of Edema: Gastrointestinal Symptoms GI Symtoms: Tube Present: Bowel Sounds: Recent Bowel Pattern: Stool Characteristics: Nutrition/Food History N/V Fair Skipped Meals: No Nutritional Diagnosis Nutritional Risk Acuity 2: V/D > 3 Days, Blood Glucose > 300mg/dl Nutritional Risk Acuity 3: Fair Appetite, Nausea Nutritional Risk Acuity 4: Modified Diet Past Medical History: Diabetic, CHF, depression, GERD, HTN, COPD Nutritional Acuity: 2-Moderate Nutrition Diagnosis: Inappropriate Carb Intake Nutrition Etiology: Physiological Causes Nutrition Problem/Etiology/Sym: Inappropriate carb intake related to physiological causes as evidence of WBG of 418 and T2DM Adjusted Energy Requirement Re: 1591 (Adj HB: AF 1.3 153lb) Protein Requirement: 69 (1g/kg x 69kg) Fluid Requirement: 1591 (1ml/bala) Diet Type: Diabetic Nutrition Intervention: Cont diet as ordered, Check glucose Nutrition Monitoring & Eval Nutrition Goals: Eat 50-100% Meal, Drink > 2 liters/day RD Patient Assessment Time: [address] Assessment Type: RD Assessment Patient Nutrition Acuity: 2-Moderate Follow Up Date: November 22, 2018 Nutritional Comment: 11/21 Pt admitted for N/V for the past two weeks. Pt is dx with acidosis, hyperglycemia, T2DM, dehydration, N/V, acute renal failure d/t dehydration. Pt is on ADA diet and consuming 75% of meals. Pt has a 418 WBG. Will meet with pt to do education on carb counting. Will continue to monitor. COLTEN LIU November 21, 2018 15:30
[2018-11-21] MEDS: NS(*) 0.9% 1000 ML BAG 1,000 ML IV PRN (17:45)
[2018-11-21] MEDS: ceFAZolin 1 GM VIAL IVP SCH (17:47)
--- NOTE | 2018-11-21 18:55 | Pharmacy Note ---
Vancomycin Management Note Vanco Dosing Note Pharmacy Services Pharmacokinetic Dosing Consult, Vancomycin Pharmacy has been consulted for dosing and monitoring of vancomycin for 58 YO Female for bacteremia. Pertinent Past Medical History: T2DM - current hyperglycemic event Antibiotics prior to admission; unknown Additional Antimicrobials: Cefazolin 1G Q8H Start 11/21 Vanco 1G Q12H Start 11/21 Patient Information: Height (cm): 157.48cm Actual Body Weight (ABW): 69.4kg Pertinent Lab Tests WHITE BLOOD COUNT 9.1 NEUTROPHILS 73.5% BLOOD UREA NITROGEN 21 SCR 0.8 VANCOMYCIN TROUGH VANCOMYCIN RANDOM Culture Results: BLOOD gram+ cocci Assessment: CrCl ~68ml/min Renal function is improving Vancomycin Monitoring Assessment Goal Vancomycin Trough Level: 15-20 Plan: 1) Vancomycin 25 mg/kg loading dose (based on ABW): 1750 mg IV x 1 11/21 @1600 2) Vancomycin maintenance dose (based on ABW): 1000mg Q12H 3) Vancomycin monitoring: Random level planned for 11/22 @1500 before the 3rd dose Pharmacy will continue to monitor daily and adjust regimen as appropriate. Thank you for the consult. HOWIE KAUFMAN November 21, 2018 18:55
[2018-11-21] MEDS: ACETAMINOPHEN 500 MG TAB PO PRN (19:14)
[2018-11-22] VITALS (21 sets, daily range): BP systolic 121–155; BP diastolic 71–96
[2018-11-22] MEDS: ceFAZolin 1 GM VIAL IVP SCH (02:27)
[2018-11-22] MEDS ORDERED: VANCOMYCIN(*) 1 GM VIAL 1 GM in NS(*) 0.9% 250 ML BAG 250 ML IVPB SCH (04:00)
[2018-11-22] MEDS: NS(*) 0.9% 1000 ML BAG 1,000 ML IV PRN ×2 (05:39→19:25)
[2018-11-22 08:58] LABS: PLATELET COUNT, AUTOMATED 226 K/uL (150-450)
[2018-11-22] MEDS: INSULIN GLARGINE 100 U/ML 3 ML PEN SUBQ SCH ×2 (09:00→20:31)
[2018-11-22] MEDS: GABAPENTIN 100 MG CAP PO SCH ×2 (09:07→20:31)
[2018-11-22] MEDS: PANTOPRAZOLE SOD 40 MG TABEC PO SCH (09:07)
[2018-11-22] MEDS: [UNRECOGNIZED DRUG - OTHER] TP PRN ×2 (09:08→20:31)
[2018-11-22] MEDS: ENOXAPARIN 40 MG/0.4ML SYR SC SCH (09:08)
--- NOTE | 2018-11-22 09:09 | NUR ---
VO from Dr. Hernandez this AM to hold AM dose of Lantus insulin.
--- NOTE | 2018-11-22 09:22 | Hospitalist Progress Note ---
Subjective Progress Notes Subjective She reports less SOB than from admission. No diarrhea, cough, sinus symptom. No dental work for a couple of years after she got them extracted for dentures. Physical Exam Vital Signs Date Time Temp Pulse Resp B/P (MAP) Pulse Ox O2 Delivery O2 Flow Rate FiO2 11/22/18 06:00 97.8 77 17 130/73 (92) 94 Nasal Cannula 3.0 Intake and Output 11/22/18 07:00 Intake Total 7059.8 ml Output Total 2000 ml Balance 5059.8 ml Intake Oral 1280 ml IV Total 5779.8 ml Output Urine Total 2000 ml General Appearance: Alert, Awake, No Acute Distress Cardiovascular: Regular Rate and Rhythm Respiratory: Clear to Auscultation GI: Soft and Non-Tender : Other (Erythema around vagina into groin down to perianal area. ) Result Diagram: 11/22/18 0848 11/21/18 0515 Assessment and Plan Problems: (1) Bacteremia Status: Acute Assessment & Plan: She is growing GPC from blood cultures. Vancomycin loaded and then started. UA and CXR wnl. She does have a lot of erythema in the groin/vagina/perirectal area, which could be a source. She has dentures and hasn't had dental work in a number of years. Echo today. Recheck blood cultures tomorrow. (2) Acidosis Status: Resolved Assessment & Plan: Secondary to ketoacidosis and/or lactic acidosis. Off insulin gtt, lactate now normal. Saline lock. (3) Hyperglycemia Status: Acute Assessment & Plan: Improved with IVF and insulin drip. On Lantus and SSI. Glucose in the 80's this morning, so holding Lantus. (4) Yeast vaginitis Status: Chronic Assessment & Plan: She has erythema in the groin/vaginal/perirectal area (likely for the last year). Getting Nystatin topical treatment. Will give a dose of Diflucan 150mg x1. Continue Grey catheter to protect skin from urine (she reports chronic incontinence). (5) Diabetes mellitus, type 2 Status: Chronic Assessment & Plan: She has been diabetic for approximately 11 years. Will treat as noted above. (6) Dehydration Status: Resolved Assessment & Plan: Improved. (7) Nausea & vomiting Status: Resolved Assessment & Plan: She has had a few bouts of this over the past few weeks. Improving. Appetite is still low this morning. (8) Acute renal failure Status: Resolved Assessment & Plan: Improved. Heart Failure NYHA Class: III Is Patient on ABA Inhibitor?: Yes Is Patient on Beta Virgie?: Yes Exam Sepsis Risk: No Definite Risk KAMILLA LEO MD November 22, 2018 09:22
[2018-11-22] MEDS ORDERED: FLUCONAZOLE 150 MG TAB PO ONE (09:30)
[2018-11-22] MEDS: INSULIN HUM LISPRO 100 UN/ML 3 ML VIAL SUBQ PRN ×3 (12:02→20:25)
--- NOTE | 2018-11-22 15:38 | Medical Nutrition Therapy ---
Nutrition Anthropometrics Height (Inches): 62.00 Height (Calculated Centimeters: 157.205437 Weight (Pounds): 153 Weight (Calculated Kilograms): 69.428 BMI: 28 Reagan Nutrition Score: Adequate Reagan Nutrition Risk Score: 19 Dietary Referral Nutrition Risk Factors: Nutrition Risk Comment: Physical Findings Physical Appearance: Overweight BMI 25-29 Skin Appearance Skin Appearance: Edema Edema Location Modifier: Edema Location: Type of Edema: Degree of Edema: Gastrointestinal Symptoms GI Symtoms: Tube Present: Bowel Sounds: Recent Bowel Pattern: Stool Characteristics: Nutrition/Food History Fair Skipped Meals: No Nutritional Diagnosis Nutritional Risk Acuity 2: V/D > 3 Days, Blood Glucose > 300mg/dl Nutritional Risk Acuity 3: Fair Appetite, Nausea Nutritional Risk Acuity 4: Modified Diet Past Medical History: Diabetic, CHF, depression, GERD, HTN, COPD Nutritional Acuity: 2-Moderate Nutrition Diagnosis: Inappropriate Carb Intake Nutrition Etiology: Physiological Causes Nutrition Problem/Etiology/Sym: Inappropriate carb intake related to physiological causes as evidence of WBG of 418 and T2DM Adjusted Energy Requirement Re: 1591 (Adj HB: AF 1.3 153lb) Protein Requirement: 69 (1g/kg x 69kg) Fluid Requirement: 1591 (1ml/bala) Diet Type: Diabetic Nutrition Intervention: Cont diet as ordered, Check glucose Nutritional Education Nutrition Education Topic: Diabetic Nutrition Learning Barriers: Hx Of Non-Compliance Learning Readiness: [place] Teaching Methods: Handout Response to Teaching: Patient Refused Teaching Recipient: Patient Nutrition Counselin/15 Offered to talk about DM and carbs, but pt was not wanting to talk about it at this time. Pt willingly accepted a booklet about carbs, a handout for support classes, and the RD's card. Nutrition Monitoring & Eval Nutrition Goals: Eat 50-100% Meal, Drink > 2 liters/day RD Patient Assessment Time: [address] Assessment Type: RD Re-Assessment Patient Nutrition Acuity: 2-Moderate Follow Up Date: November 24, 2018 Nutritional Comment: 11/21 Pt admitted for N/V for the past two weeks. Pt is dx with acidosis, hyperglycemia, T2DM, dehydration, N/V, acute renal failure d/t dehydration. Pt is on ADA diet and consuming 75% of meals. Pt has a 418 WBG. Will meet with pt to do education on carb counting. Will continue to monitor. CD 11/22 Met with pt and offered to talk about DM and carbs, but pt was not wanting to talk about it at this time. Pt willingly accepted a booklet about carbs, a handout for support classes, and the RD's card. Pt still has very high blood glucose levels of 349 and 418. Pt is eating 50-100% of ADA meals. Will continue to monitor. COLTEN LIU November 22, 2018 09:00
[2018-11-22] MEDS ORDERED: IOPAMIDOL 76% 150 ML INFUS BTL 150 ML ONE (15:50)
--- NOTE | 2018-11-22 17:26 | RADIOLOGY IMAGING REPORT ---
FACILITY: [facility] PATIENT NAME: Nunu Mattson : 1960 MR: [id number] V: [id number] EXAM DATE: ORDERING PHYSICIAN: KAMILLA LEO TECHNOLOGIST: Location: [facility] Patient: Nunu Mattson : 1960 Visit/Account:[id number] Date of Sevice: 11/22/2018 CT CHEST ABDOMEN PELVIS W & W/O HISTORY: bacteremia of unclear source ADDITIONAL HISTORY: None. TECHNIQUE: Pre and post administration of IV contrast axial images acquired through the chest abdome n and pelvis during the portal venous phase. Coronal and sagittal reformatting was also performed.Do se Lowering Technique One of the following dose optimization techniques was utilized in the performance of this exam: Autom ated exposure control; adjustment of the mA and/or kV according to the patient's size; or use of an i terative reconstruction technique. Specific details can be referenced in the facility's radiology C T exam operational policy. CONTRAST: 75 mL Isovue-370 COMPARISON: Abdomen and pelvis January 06, [address] chest December 17, 2016 FINDINGS: CHEST: Lungs/Pleura: There small bilateral posterior layering pleural effusions and compressive atelectasis in the lower lobes Mediastinum/lymph nodes: There mild hilar and mediastinal lymph nodes and extra slightly less promin ent when compared to the prior study Heart/vessels: Vascular calcifications are present within the aortic arch and branch vessels Bones/soft tissues: Extensive S-shaped scoliosis of the thoracal lumbar spine with spondylotic frankel es ABDOMEN AND PELVIS: Hepatobiliary: The liver is enlarged measuring 22.1 cm in length . The gallbladder is contracted w ith a small amount of pericholecystic fluid. The common bile duct is dilated at 1 cm the level of th e pancreatic head. An obstructing calculus is not seen. Spleen: Negative. Pancreas: Negative. Adrenals: 8 mm right adrenal nodule appears unchanged Kidneys ureters and bladder : The bladder is decompressed with a Grey catheter. There is a small am ount of air within the bladder which may be related to the Grey catheter although infection with gas -forming organism is included in the differential diagnosis versus a vesicocolonic/enteric fistula Genitalia: Hysterectomy versus extremely atrophic uterus. Large septated pelvic mass noted on the pr evious CT is no longer identified GI: There is diverticulosis left-sided colon although no CT evidence of acute diverticulitis Vessels/spaces/nodes: There moderate atherosclerotic calcifications of the abdominal aorta and branc h vessels. There are shotty retroperitoneal lymph nodes present . There is a small amount of pelvi c ascites and small amount of ascites adjacent to the right lobe of the liver Bones/soft tissues: There bilateral inguinal hernias containing fat. There is a severe S-shaped sco liosis of the thoracal lumbar spine with spondylotic changes Additional findings: None pertinent. IMPRESSION: There small bilateral posterior layering pleural effusions with compressive atelectasis in the lower lobes There is mild mediastinal and bilateral hilar adenopathy appears slightly less prominent when compare d to the prior study Hepatomegaly The gallbladder is contracted with a small amount of pericholecystic fluid. This could be related to a fasting state although differential diagnosis would include acute cholecystitis. Common bile duct is dilated up to 1 cm at the level of the pancreatic head. This appears slightly more prominent whe n compared the prior study. An obstructing calculus is not seen however further evaluation could be performed with an MRCP depending upon the clinical presentation. The bladder is decompressed with a Grey catheter. There is a small amount of air within the bladder which may be related to the Grey catheter although infection with a gas-forming organism or a vesic ocolonic/enteric fistula. Previously noted large septated pelvic mass is no longer seen Div rticulosis left-sided colon Small amount of abdominal and pelvic ascites Bilateral inguinal hernias containing fat. Additional chronic findings Report Dictated By: Mi Gage MD at 11/22/2018 5:04 PMReport E-Signed By: Mi Gage MD at 11/22/2018 5:22 PM [id number]
--- NOTE | 2018-11-22 17:33 | NUR ---
Did call lab @ 5255 to check on results of vanco random as pt has vanco dose @ 1600. Lab states they are running QC on instrument. RX notified of delay.
[2018-11-22] MEDS: VANCOMYCIN(*) 1 GM VIAL 1 GM, VANCOMYCIN (*) 0.5 GM VIAL 0.25 GM in NS(*) 0.9% 250 ML B... IVPB SCH (18:15)
--- NOTE | 2018-11-22 18:33 | Pharmacy Note ---
Vancomycin Management Note Vanco Dosing Note Vancomycin trough 11/22 at 1542 = 10.98. and dose increased from 1 gm q12 hours to 1.25 gm q12 hours with a T of 15-20 the goal. MIRIAM HORVATH November 22, 2018 18:33
[2018-11-22] MEDS: ATORVASTATIN 10 MG TAB PO SCH (20:31)
[2018-11-22] MEDS ORDERED: IV BOLUS 500 ML IVSOL IV ONE ×2 (20:40→20:45)
[2018-11-23] VITALS (11 sets, daily range): BP systolic 130–156; BP diastolic 72–94
[2018-11-23 05:26] LABS: PLATELET COUNT, AUTOMATED 209 K/uL (150-450)
[2018-11-23] MEDS: NS(*) 0.9% 1000 ML BAG 1,000 ML IV PRN ×2 (05:48→17:04)
[2018-11-23] MEDS: VANCOMYCIN(*) 1 GM VIAL 1 GM, VANCOMYCIN (*) 0.5 GM VIAL 0.25 GM in NS(*) 0.9% 250 ML B... IVPB SCH (05:52)
[2018-11-23] MEDS: ACETAMINOPHEN 500 MG TAB PO PRN ×3 (05:55→23:44)
[2018-11-23] MEDS: ESCITALOPRAM OXALATE 10 MG TAB PO SCH (08:39)
[2018-11-23] MEDS: POTASSIUM CHL 20 MEQ TABCR PO SCH ×2 (08:39→16:56)
[2018-11-23] MEDS: PANTOPRAZOLE SOD 40 MG TABEC PO SCH (08:39)
[2018-11-23] MEDS: GABAPENTIN 100 MG CAP PO SCH ×2 (08:39→20:55)
[2018-11-23] MEDS: ENOXAPARIN 40 MG/0.4ML SYR SC SCH (08:40)
[2018-11-23] MEDS: [UNRECOGNIZED DRUG - OTHER] TP PRN ×2 (10:39→20:57)
--- NOTE | 2018-11-23 11:00 | Hospitalist Progress Note ---
Subjective Progress Notes Subjective This patient was admitted for diabetic ketoacidosis. She had no acute events overnight. Patient Complains of: Cardiovascular: No: Chest Pain Respiratory: No: Shortness of Breath Physical Exam Vital Signs Date Time Temp Pulse Resp B/P (MAP) Pulse Ox O2 Delivery O2 Flow Rate FiO2 11/23/18 10:05 75 11/23/18 10:00 13 152/85 (107) 93 Nasal Cannula 3.0 11/23/18 09:00 98.6 Intake and Output 11/23/18 07:00 Intake Total 4593.5 ml Output Total 2995 ml Balance 1598.5 ml Intake Oral 900 ml IV Total 3693.5 ml Output Urine Total 2995 ml # Bowel Movements 1 Neuro: No Gross deficits Eyes: PERRLA Cardiovascular: Regular Rate and Rhythm Respiratory: Clear to Auscultation Extremities: No Edema Integumentary: No Cyanosis Result Diagram: 11/23/1851811/23/18518 Assessment and Plan Problems: (1) DKA (diabetic ketoacidoses) Assessment & Plan: She did present with an elevated anion gap and hyperglycemia. She was treated with IV fluids and an insulin infusion. Her gap has now closed and she has transitioned to SQ insulin. (2) Sepsis Assessment & Plan: She did have a fever and lactic acidosis. Her cultures are growing Staphylococcus epidermidis in both bottles. She has been on treatment with vancomycin. We will be converting her to IV Bactrim. Repeat cultures were done today. (3) Cellulitis Assessment & Plan: She does have macerated skin and erythema in the groin area, which is presumed to be the source of her infection. She is on antibiotics as above. (4) Yeast vaginitis Status: Chronic Assessment & Plan: She has been started on Nystatin. (5) Diabetes mellitus, type 2 Status: Chronic Assessment & Plan: She has been restarted on Lantus and sliding scale. Her sugars were low this morning. We decreased her Lantus and took her to sliding scale level #2. (6) Dehydration Status: Resolved Assessment & Plan: Improved. (7) Nausea & vomiting Status: Resolved Assessment & Plan: She has had a few bouts of this over the past few weeks. Improving. Appetite is still low this morning. (8) Acute renal failure Status: Resolved Assessment & Plan: Improved. Heart Failure NYHA Class: III Is Patient on ABA Inhibitor?: Yes Is Patient on Beta Virgie?: Yes Exam Sepsis Risk: No Definite Risk LOVE CUNNINGHAM DO November 23, 2018 11:00
[2018-11-23] MEDS: INSULIN HUM LISPRO 100 UN/ML 3 ML VIAL SUBQ PRN ×2 (16:57→20:55)
--- NOTE | 2018-11-23 18:26 | Pharmacy Note ---
Vancomycin Management Note Vanco Dosing Note Vanco trough at 1700 on 11/23 = 10.4; change dose to 1 gm q8 hrs (est crcl = 93) and next trough at 170 0 on 11/24. MIRIAM HORVATH November 23, 2018 18:25
[2018-11-23] MEDS: VANCOMYCIN(*) 1 GM VIAL 1 GM in NS(*) 0.9% 250 ML BAG 250 ML IVPB SCH (18:34)
[2018-11-23] MEDS: INSULIN GLARGINE 100 U/ML 3 ML PEN SUBQ SCH (20:54)
[2018-11-23] MEDS: ATORVASTATIN 10 MG TAB PO SCH (20:55)
--- NOTE | 2018-11-23 22:45 | NUR ---
Report Receive from SANDRA Maharaj. Patient moved without issues to room. Denies any needs or concerns.
[2018-11-24] MEDS: VANCOMYCIN(*) 1 GM VIAL 1 GM in NS(*) 0.9% 250 ML BAG 250 ML IVPB SCH ×3 (02:28→18:34)
[2018-11-24] MEDS: NS(*) 0.9% 1000 ML BAG 1,000 ML IV PRN (04:52)
[2018-11-24 07:54] VITALS: BP 156/99
--- NOTE | 2018-11-24 07:59 | NUR ---
finger stick blood glucose of 65mg/dL. pt denies s/s of hypoglycemia at this time. given orange juice and protein. Addendum: 11/24/18 at 0800 by AUGUSTO HARVEY RN Amended: Links added.
[2018-11-24] MEDS: POTASSIUM CHL 20 MEQ TABCR PO SCH ×2 (08:28→17:17)
[2018-11-24] MEDS: ESCITALOPRAM OXALATE 10 MG TAB PO SCH (08:28)
[2018-11-24] MEDS: PANTOPRAZOLE SOD 40 MG TABEC PO SCH (08:28)
[2018-11-24] MEDS: ENOXAPARIN 40 MG/0.4ML SYR SC SCH (08:29)
[2018-11-24] MEDS: GABAPENTIN 100 MG CAP PO SCH ×2 (08:29→21:29)
[2018-11-24] MEDS: ACETAMINOPHEN 500 MG TAB PO PRN ×2 (10:32→18:47)
[2018-11-24] MEDS ORDERED: FLUCONAZOLE 150 MG TAB PO ONE (10:45)
--- NOTE | 2018-11-24 10:54 | Hospitalist Progress Note ---
Subjective Progress Notes Subjective Nausea improved. Moving around the room. No concerns from staff. Physical Exam Vital Signs Date Time Temp Pulse Resp B/P (MAP) Pulse Ox O2 Delivery O2 Flow Rate FiO2 11/24/18 08:23 90 Nasal Cannula 3.0 11/24/18 07:54 98.6 78 16 156/99 (118) Intake and Output 11/24/18 07:00 Intake Total 3100 ml Output Total 2000 ml Balance 1100 ml Intake Oral 860 ml IV Total 2240 ml Output Urine Total 2000 ml # Bowel Movements 1 General Appearance: Alert, Awake, No Acute Distress Cardiovascular: Regular Rate and Rhythm GI: Soft and Non-Tender : Other (Erythema persists in groin/vagina/perirectal area) Result Diagram: 11/23/1851811/23/18518 Assessment and Plan Problems: (1) Sepsis Assessment & Plan: She did have a fever and lactic acidosis. Her cultures are growing Staphylococcus epidermidis in both bottles. She has been on treatment with vancomycin. Echo didn't show any valvular abnormalities. Repeat cultures on 11/23. If those remain negative, then she will need a total of a 5 day course of Vancomycin. (2) Yeast vaginitis Status: Chronic Assessment & Plan: She has erythema in the groin/vaginal/perirectal area (likely for the last year). Getting Nystatin topical treatment. Will give another dose of Diflucan 150mg. Continue Grey catheter to protect skin from urine (she reports chronic incontinence). (3) Cellulitis Assessment & Plan: She does have macerated skin and erythema in the groin area, which is certainly related to yeast but cannot rule out a bacterial superinfection. It is presumed to be the source of her bacteremia. She is on antibiotics as above. (4) Diabetes mellitus, type 2 Status: Chronic Assessment & Plan: She has been restarted on Lantus and sliding scale. Her sugars were low again this morning. We decreased her Lantus and took her to sliding scale level #2. Will stop HS glucose checks and giving SSI (5) DKA (diabetic ketoacidoses) Status: Resolved Assessment & Plan: She did present with an elevated anion gap and hyperglycemia. She was treated with IV fluids and an insulin infusion. Her gap has now closed and she has transitioned to SQ insulin. (6) Dehydration Status: Resolved Assessment & Plan: Improved. (7) Nausea & vomiting Status: Resolved Assessment & Plan: She has had a few bouts of this over the past few weeks. Improving. (8) Acute renal failure Status: Resolved Assessment & Plan: Improved. Heart Failure NYHA Class: III Is Patient on ABA Inhibitor?: Yes Is Patient on Beta Virgie?: Yes Exam Sepsis Risk: No Definite Risk KAMILLA LEO MD November 24, 2018 10:54
--- NOTE | 2018-11-24 11:01 | Medical Nutrition Therapy ---
Nutrition Anthropometrics Height (Inches): 62.00 Height (Calculated Centimeters: 157.095547 Weight (Pounds): 163 Weight (Calculated Kilograms): 74.106 BMI: 28 Reagan Nutrition Score: Adequate Reagan Nutrition Risk Score: 18 Dietary Referral Nutrition Risk Factors: Nutrition Risk Comment: Physical Findings Physical Appearance: Overweight BMI 25-29 Skin Appearance Skin Appearance: Edema Edema Location Modifier: Right Edema Location: Lower Extremity Type of Edema: Degree of Edema: Gastrointestinal Symptoms GI Symtoms: Tube Present: Bowel Sounds: Recent Bowel Pattern: Stool Characteristics: Nutritional Diagnosis Nutritional Risk Acuity 2: Blood Glucose > 300mg/dl, Sepsis, DKA Nutritional Risk Acuity 4: Modified Diet Past Medical History: Diabetic, CHF, depression, GERD, HTN, COPD Nutritional Acuity: 2-Moderate Nutrition Diagnosis: Inappropriate Carb Intake Nutrition Etiology: Physiological Causes Nutrition Problem/Etiology/Sym: Inappropriate carb intake related to physiological causes as evidence of WBG of 418 and T2DM Adjusted Energy Requirement Re: 1591 (Adj HB: AF 1.3 153lb) Protein Requirement: 69 (1g/kg x 69kg) Fluid Requirement: 1591 (1ml/bala) Diet Type: Diabetic Nutrition Intervention: Cont diet as ordered, Check glucose Nutrition Monitoring & Eval Nutrition Goals: Eat 75-100% Meal Nutrition Follow-Up: Good Intake RD Patient Assessment Time: [address] Assessment Type: RD Re-Assessment Patient Nutrition Acuity: 2-Moderate Follow Up Date: November 29, 2018 Nutritional Comment: 11/21 Pt admitted for N/V for the past two weeks. Pt is dx with acidosis, hyperglycemia, T2DM, dehydration, N/V, acute renal failure d/t dehydration. Pt is on ADA diet and consuming 75% of meals. Pt has a 418 WBG. Will meet with pt to do education on carb counting. Will continue to monitor. CD 11/22 Met with pt and offered to talk about DM and carbs, but pt was not wanting to talk about it at this time. Pt willingly accepted a booklet about carbs, a handout for support classes, and the RD's card. Pt still has very high blood glucose levels of 349 and 418. Pt is eating 50-100% of ADA meals. Will continue to monitor. CD 11/25 Pt cont on ADA diet. Intake average 78%. BG cont elevated but ranged 65-223 past 2 days. A1c 9.9. Will cont to monitor and encourage intake. WINNIE SILVERIO November 24, 2018 11:01
[2018-11-24] MEDS: INSULIN HUM LISPRO 100 UN/ML 3 ML VIAL SUBQ PRN ×2 (11:31→16:40)
--- NOTE | 2018-11-24 11:45 | Antimicrobial Stewardship ---
Antimicrobial Stewardship Empiricly appropriate: Yes Significant PMH: Yes (Type 2 DM, insulin dependent, CHF, COPD, GERD, HTN) Support empiric regimen: Yes (Vancomycin) Approriate Cultures done: Yes (Blood Cx x 2 - Staph epi 4/4 bottles) Cultures need repeate: Yes (11/23 - Blood Cx repeated, NGTD) Organism identified: Yes (S. epi in 4/4 bottles (blood Cx) - R - lester ylpenicillin, oxacillin, clindamycin, ciprofloxacin, erythromycin) Renal/Hepatic dosing: Yes (Scr 1.4 --> 0.4) Serum concentration checked: Yes Comment Vancomycin Trough goal 15-20 Determine standard duration: MRSE bacteremia- Tx duration is ~5 - 7 days Comment 58 yo F with PMH of T2DM (insulin dependent), CHF, COPD, GERD, HTN who presented with N/V, weakness, and malaise found to have a cellulits and positive blood cultures. Tmax 100.2 WBC wnl Lactate 9.1, 8.2, 3.9, 5.4, 6.2, 1.4, 2.9, 5.3, 5.9, 0.9 LFTs slightly elevated at admission 58/62 5/ Blood Cx x 2 - S. epi 4/4 bottles, R to clindamycin, erythromycin, oxacillin, benzylpenicillin, ciprofloxacin/levofloxacin 11/23 Blood Cx x 2 repeated - NGTD Echo EF 65-70%, no vegetations Vancomycin Random: 11/22 - 10.98, on Vancomycin 1.25g IV q12h Vancomycin Trough: 11/23 - 10.45, switched to 1g IV q8h Plan to treat with a minimum of 5 days of IV Vancomycin based on the following factors: two positive blood cx for coag neg staph, negative follow up blood cx, no signs or sx of metastatic infection, no intravascular prosthetic devices. Plan to treat for 5 days. Today is day 4 of therapy, started on 11/21. Continue treatment with Vancomycin, goal trough 15-20mcg/mL. Next trough on 11/24 at 1700. Will continue to follow. Mei Acosta, PharmD, BCOP MEI ACOSTA November 24, 2018 11:45
[2018-11-24 13:23] VITALS: BP 151/89
[2018-11-24 16:34] VITALS: BP 142/78
[2018-11-24 19:02] VITALS: BP 144/84
[2018-11-24] MEDS: ATORVASTATIN 10 MG TAB PO SCH (21:29)
[2018-11-24] MEDS: [UNRECOGNIZED DRUG - OTHER] TP PRN (21:30)
[2018-11-24] MEDS: INSULIN GLARGINE 100 U/ML 3 ML PEN SUBQ SCH (21:30)
[2018-11-25 01:28] VITALS: BP 158/84
[2018-11-25] MEDS: VANCOMYCIN(*) 1 GM VIAL 1 GM in NS(*) 0.9% 250 ML BAG 250 ML IVPB SCH ×2 (01:33→10:15)
[2018-11-25 08:00] VITALS: BP 141/82
[2018-11-25] MEDS: INSULIN HUM LISPRO 100 UN/ML 3 ML VIAL SUBQ PRN ×3 (08:03→16:33)
[2018-11-25] MEDS: POTASSIUM CHL 20 MEQ TABCR PO SCH ×2 (08:03→17:11)
[2018-11-25] MEDS: ESCITALOPRAM OXALATE 10 MG TAB PO SCH (08:46)
[2018-11-25] MEDS: PANTOPRAZOLE SOD 40 MG TABEC PO SCH (08:47)
[2018-11-25] MEDS: GABAPENTIN 100 MG CAP PO SCH ×2 (08:47→20:52)
[2018-11-25] MEDS: ENOXAPARIN 40 MG/0.4ML SYR SC SCH (08:48)
[2018-11-25] MEDS: NYSTATIN 100,000 U/GM PWD 15GM TP SCH ×3 (10:12→20:53)
[2018-11-25 11:32] VITALS: BP 125/82
[2018-11-25 15:43] VITALS: BP 153/85
[2018-11-25] MEDS: ACETAMINOPHEN 500 MG TAB PO PRN (15:45)
--- NOTE | 2018-11-25 17:53 | Pharmacy Note ---
Vancomycin Management Note Vanco Dosing Note Trough on 11/25/18 was 20.52 so Vancomycin dose was reduced to 750 mg IV q8h. ROMAIN FERRELL November 25, 2018 17:53
[2018-11-25] MEDS: VANCOMYCIN HCL(*) 0.750 GM ADD 0.75 GM in NS(*) 0.9% 250 ML ADDVAN BAG 250 ML IVPB SCH (18:10)
[2018-11-25 19:15] VITALS: BP 147/85
[2018-11-25] MEDS: ATORVASTATIN 10 MG TAB PO SCH (20:53)
[2018-11-25] MEDS: INSULIN GLARGINE 100 U/ML 3 ML PEN SUBQ SCH (20:54)
[2018-11-26 02:00] VITALS: BP 170/95
[2018-11-26] MEDS: VANCOMYCIN HCL(*) 0.750 GM ADD 0.75 GM in NS(*) 0.9% 250 ML ADDVAN BAG 250 ML IVPB SCH ×2 (02:03→10:29)
[2018-11-26 06:52] VITALS: BP 155/84
[2018-11-26] MEDS: INSULIN HUM LISPRO 100 UN/ML 3 ML VIAL SUBQ PRN ×2 (08:12→12:05)
[2018-11-26] MEDS: PANTOPRAZOLE SOD 40 MG TABEC PO SCH (08:13)
[2018-11-26] MEDS: POTASSIUM CHL 20 MEQ TABCR PO SCH (08:13)
[2018-11-26] MEDS: ESCITALOPRAM OXALATE 10 MG TAB PO SCH (08:13)
[2018-11-26] MEDS: NYSTATIN 100,000 U/GM PWD 15GM TP SCH (08:14)
[2018-11-26] MEDS: ENOXAPARIN 40 MG/0.4ML SYR SC SCH (08:14)
[2018-11-26] MEDS: GABAPENTIN 100 MG CAP PO SCH (08:14)
[2018-11-26] MEDS ORDERED: FLUCONAZOLE 150 MG TAB PO ONE (09:00)
[2018-11-26] MEDS ORDERED: INSU100I30 SQ (13:44)
[2018-11-26] MEDS ORDERED: NYST15CR32 TP (13:49)
[2018-11-26] MEDS ORDERED: GABA-547 PO (13:49)
[2018-11-26] MEDS ORDERED: INSU100V24 SUBQ (13:52)
[2018-11-26] MEDS ORDERED: [UNRECOGNIZED DRUG - OTHER] TP SCH (14:00)
--- NOTE | 2018-11-26 14:03 | Hospitalist Depart ---
Discharge Summary Reason for Hosp/Final Diag: (1) Sepsis Hospital Course & Plan: She did have a fever and lactic acidosis. Her cultures grew Staphylococcus epidermidis in both bottles. She was placed on treatment with vancomycin and finished a 5 day course after repeat cultures on 11/23 were negative. Echo didn't show any valvular abnormalities. (2) Yeast vaginitis Status: Chronic Hospital Course & Plan: She had erythema in the groin/vaginal/perirectal area (likely for the last year). Treated with Nystatin topical treatment as well as Diflucan 150mg (X 3 doses). A Grey catheter was placed to protect skin from urine while treating. The Grey was discontinued prior to discharge. (3) Cellulitis Hospital Course & Plan: She had macerated skin and erythema in the groin area, which was certainly related to yeast but could not rule out a bacterial superinfection. It was presumed to be the source of her bacteremia. She finished a course of antibiotics as above. (4) Diabetes mellitus, type 2 Status: Chronic Hospital Course & Plan: She was restarted on Lantus and sliding scale. Her sugars were low at times on much less insulin than she was taking at home. She will be discharged on Lantus 9u SC bid and a sliding scale from 2-10 units of short acting insulin based on blood sugar. (5) DKA (diabetic ketoacidoses) Status: Resolved Hospital Course & Plan: She did present with an elevated anion gap and hyperglycemia. She was treated with IV fluids and an insulin infusion. Her gap closed and she was transitioned to SQ insulin. (6) Dehydration Status: Resolved Hospital Course & Plan: Resolved with IV fluids. (7) Nausea & vomiting Status: Resolved Hospital Course & Plan: She reported intermittent bouts of nausea and vomiting over several weeks prior to admission. This improved during her inpatient stay. (8) Acute renal failure Status: Resolved Hospital Course & Plan: Improved with hydration. Departure Weight (Pounds): 155 Weight (Ounces): 9.0 Result Diagram: 11/23/1851811/23/18518 Please see complete record. Please see complete record. Imaging Please see complete record. EKG FACILITY: [facility] [place] PATIENT NAME: MARIBEL BALDERRAMA : [id number] MR: [id number] V: [id number] EXAM DATE: ORDERING PHYSICIAN: JACK CHURCHILL TECHNOLOGIST: CORNELL Andres Reason : TACHY Blood Pressure : / mmHG Vent. Rate : 104 BPM Atrial Rate : 104 BPM P-R Int : 154 ms QRS Dur : 070 ms QT Int : 326 ms P-R-T Axes : 061 -01 064 degrees QTc Int : 428 ms Sinus tachycardia Borderline left axis Possible left atrial enlargement Poor R wave progression anteriorly Abnormal ECG Confirmed by LOTUS BERRY ([id number]) on 11/21/2018 3:30:26 AM Referred By: ER Confirmed By:LOTUS BERRY [id number] T: JUSTIN/ Condition: Improved Discharge: Home, Self Care Time Spent: < 30 min Discharge Instructions Home Meds Active Scripts Insulin Glargine (LANTUS) 100 Unit/Ml Soln, 18 UNIT SUBQ BID, #3 VIAL 6 Refills add 2 units every 3 days until FBS less than 120 Prov:LIU MELVIN MD 07/14/18 Gabapentin (GABAPENTIN) 100 Mg Capsule, 1-3 CAP PO TID PRN for neuropathy, #60 CAPSULE 3 Refills Prov:LIU MELVIN MD 05/23/18 Flash Glucose Sensor (Freestyle Diana 14 Day Sensor) 1 Each Kit, UNIT Q2WK, #2 11 Refills Prov:LIU MELVIN MD 05/23/18 Flash Glucose Scanning [place] (Freestyle Diana 14 Day [place]) 1 Each Each, UNIT TD DIRECTED, #1 Prov:LIU MELVIN MD 05/23/18 Pantoprazole Sodium (PANTOPRAZOLE SODIUM) 40 Mg Tablet.dr, 40 MG PO QDAY, #30 TAB.SR 6 Refills Prov:LIU MELVIN MD 05/23/18 Escitalopram Oxalate (ESCITALOPRAM OXALATE) 20 Mg Tablet, 20 MG PO QDAY, #90 TAB 3 Refills Prov:LIU MELVIN MD 02/21/18 Atorvastatin Calcium (ATORVASTATIN CALCIUM) 20 Mg Tablet, 1 TAB PO QDAY, #90 TAB 3 Refills Prov:LIU MELVIN MD 02/21/18 Furosemide (FUROSEMIDE) 20 Mg Tablet, 1 TAB PO QDAY, #90 TAB 1 Refill Prov:LIU MELVIN MD 8/14/18 Blood Sugar Diagnostic (FREESTYLE LITE TEST STRIPS) 1 Each Strip, 1 EACH MC QID, #100 STRIP 7 Refills use four times a day to test blood sugar Prov:LIU MELVIN MD 02/08/17 Insulin Regular, Human (NOVOLIN R) 100 Unit/1 Ml Vial, 15-20 UNIT IJ TID, #6 VIAL 4 Refills 15-20 units three times a day Sliding scale Prov:LIU MELVIN MD 01/13/17 Reported Medications Aspirin (ASPIRIN) 81 Mg Tab.chew, 81 MG PO QDAY, TAB.CHEW 05/23/18 Oxygen (OXYGEN) Inha, 2 L INH, L 12/20/17 Follow up Referrals: Internal Medicine - In Two Weeks @ [facility]-Primary with LIU JEROME MD Diet: Diabetic Activity: As Tolerated Copies to: LIU MELVIN MD ; Venous Thromboembolism Antithrombotics Is Pt On Any Antithrombotics?: Yes Heart Failure NYHA Class: III Is Patient on ABA Inhibitor?: Yes Is Patient on Beta Virgie?: Yes MIRIAM BERRY MD November 26, 2018 14:03
[2018-11-26] MEDS ORDERED: NOVOLINRPT IJ (14:17)
== END 2018-11-26 14:45 | disposition home or self-care (01) | DRG 871 ==
LOC: ER 16:37 → UNDOADMIN 17:44 → ICU 17:44 → MED 11-23 22:57
PROVIDERS: ADMIT Internal Medicine; ATTEND Internal Medicine
DX: A41.1 Sepsis due to other specified staphylococcus (principal); E11.10 Type 2 diabetes mellitus with ketoacidosis without coma; L03.314 Cellulitis of groin; N17.9 Acute kidney failure, unspecified; E87.2 Acidosis; B37.3 Candidiasis of vulva and vagina; E86.0 Dehydration; E11.40 Type 2 diabetes mellitus with diabetic neuropathy, unspecified; K21.9 Gastro-esophageal reflux disease without esophagitis; F32.9 Major depressive disorder, single episode, unspecified; E78.5 Hyperlipidemia, unspecified; Z79.4 Long term (current) use of insulin; Z87.891 Personal history of nicotine dependence; Z85.43 Personal history of malignant neoplasm of ovary; Z90.710 Acquired absence of both cervix and uterus
CPT/HCPCS: 36415; 36416; 71045; 71270; 74178; 80202; 81001; 82009; 82040; 82247; 82310; 82374; 82435; 82565; 82803; 82947; 82948; 83036; 83605; 83930; 84075; 84132; 84155; 84295; 84450; 84460; 84484; 84520; 85025; 87040; 87077; 87088; 87186; 93005; 93306; 96361; 96365; 96375; 99284; C1758; J0690; J1650; J1815; J2405; J2765; J3370; J3480; J7030; J7050; Q9967